=== PATIENT | male | born 1985 | race Hispanic/Latino ===

== ENCOUNTER 2024-06-18 08:31 | Emergency (ER) | payer BC ==
[~2024-06-18] VITALS: Ht 172.7 cm; Wt 102.1 kg
--- NOTE | 2024-06-18 09:21 | EKG ---
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
[2024-06-18 09:49] LABS: POTASSIUM 3.8 mmol/L (3.5-5.1)
[2024-06-18 09:51] LABS: INR 0.98 (0.85-1.15); PROTHROMBIN TIME 10.4 SEC (9.6-11.6)
[2024-06-18 09:52] LABS: PARTIAL THROMBOPLASTIN TIME 27.5 SEC (26.3-35.5)
[2024-06-18 09:54] LABS: MAGNESIUM 2.3 mg/dL (1.80-2.40)
[2024-06-18 09:55] LABS: BASOPHILS # (AUTO) 0.07 K/uL (0.00-0.20); BASOPHILS % (AUTO) 1.3 % (0.0-5.0); EOSINOPHILS # (AUTO) 0.03 K/uL (0.00-0.70); EOSINOPHILS % (AUTO) 0.6 % (0.0-8.0); HEMATOCRIT 51.4 % (42-54); IMMATURE GRANULOCYTE ABSOLUTE 0.02 K/uL (0-1); LYMPHOCYTES % (AUTO) 36.2 % (21.0-51.0); MEAN CORPUSCULAR HEMOGLOBIN 27.8 pg (27.0-33.0); MEAN CORPUSCULAR HGB CONC 33.1 g/dL (32.0-36.0); MEAN CORPUSCULAR VOLUME 84.1 fL (79-99); MONOCYTES # (AUTO) 0.3 K/uL (0.1-1.0); MONOCYTES % (AUTO) 5.7 % (3.0-13.0); NEUTROPHILS % (AUTO) 55.8 % (40.0-77.0); PLATELET COUNT (AUTO) 230 K/uL (130-400); RED BLOOD CELL COUNT(AUTO) 6.11 MIL/uL (4.50-6.20); RED CELL DISTRIBUTION WIDTH 14.1 % (11.0-15.5); WHITE BLOOD COUNT (AUTO) 5.4 K/uL (4.8-10.8)
[2024-06-18 10:06] LABS: B-TYPE NATRIURETIC PEPTIDE < 5 pg/mL (0-100)
--- NOTE | 2024-06-18 10:06 | ERN ---
General Chief Complaint: Numbness Stated Complaint: LEFT SIDED NUMBNESS X 2 DAYS Time Seen by MD: 08:45 Source: patient History of Present Illness Initial Comments Patient is a 39-year-old male coming in with chest numbness and chest pressure. Patient states that this began two days ago. Along with that today he started presenting with left arm numbness left facial numbness. States that he was concerned decided to come in for further evaluation. No fever or chills. Allergies: Coded Allergies: No Known Drug Allergies (Unverified Allergy, Unknown, 06/18/24) Past Medical History Past Medical History: No Pertinent History Past Surgical History: None ROS Dictation CONSTITUTIONAL: No chills, no fever, no weakness, no diaphoresis, no malaise. HEAD/FACE: No signs of trauma. EENT: No eye pain, no blurred vision, no tearing, no double vision, no ear pain, no ear discharge, no nose pain, no nasal congestion, no throat pain, no throat swelling, no mouth pain. RESPIRATORY: No cough, no orthopnea, no SOB, no stridor, no wheezing. CARDIOVASCULAR: No chest pain, no edema, no palpitations, no syncope. GASTROINTESTINAL/ABDOMINAL: No abdominal pain, no constipation, no diarrhea, no nausea, no vomiting. GENITOURINARY: No abnormal discharge, no dysuria, no frequent urination, no hematuria. No complaints of pain in the genitals. MUSCULOSKELETAL: No back pain, no gout, no joint pain, no joint swelling, no muscle pain, no muscle stiffness, no neck pain. INTEGUMENTARY: No change in color, no change in hair/nails, no dryness, no le salma, no lumps, no rash. NEUROLOGICAL/PSYCH: No anxiety, not depressed, no emotional problem, no headache, no numbness, no pre-existing deficit, no history of seizures, no tremors, no weakness. HEMATOLOGIC/LYMPHATIC: Not anemic, no history of blood clots, no apparent bleeding, no bruising, glands not swollen. All Systems Negative, Except as Noted. Physical Exam Physical Exam Dictation VITAL SIGNS: Reviewed. GENERAL APPEARANCE: Alert, oriented x3, no acute distress, obese. HEAD AND FACE: Non-traumatic. EYES: PERRL, pink conjunctivas, eyelid no trauma, anterior chamber clear. EARS: Pinnas intact and no signs of trauma or erythema. Ear canals clear and no discharge. TMs no erythema. NOSE: No discharge, no bleeding. OROPHARYNX: Mouth normal, teeth no caries, tongue pink. Pharynx clear, no erythema. Tonsils no exudates, no abscesses noted. Mucous membrane moist. NECK: Supple, non-tender, no thyromegaly, no masses, no JVD, no bruits. BREAST: Deferred. CHEST: No tenderness, no crepitus, no paradoxical movement, no retractions. LUNGS: Clear, well-ventilated, symmetric, no rales, no wheezing, no rhonchi, no stridor, good breath sounds bilaterally. HEART: Regular rate, regular rhythm, no murmur, no gallops. VASCULAR: No peripheral edema. ABDOMEN: Soft, positive bowel sounds, nondistended, no guarding, nontender, no rebound, no masses no hepatomegaly, no splenomegaly, no Kathleen's sign, no hernias. RECTAL: Deferred. GENITAL: Deferred. NEUROLOGICAL: Normal speech, gross motor function intact, gross sensory function intact. MUSCULOSKELETAL: Neck nontender, full range of motion, back nontender, full range of motion. EXTREMITIES: Nontender, full range of motion. SKIN: Color pink, dry, no turgor, no rash, no lacerations, no abrasions, no contusions. LYMPHATICS: Deferred. Stroke Patient?: No NIH STROKE SCALE: NIH STROKE SCALE Response (Comments) Value Level of Consciousness Alert 0 Ask patient month and their age Answers both correct 0 Command to open eyes, make fist and let go Obeys both correct 0 Best gaze (horizontal eye movement) Normal 0 Visual Field Testing No Visual Field Loss 0 Facial Paresis Normal / Symmetrical 0 Motor Function - Left Arm Normal 0 Motor Function - Right Arm Normal 0 Motor Function - Left Leg Normal 0 Motor Function - Right Leg Normal 0 Limb Ataxia No Ataxia 0 Sensory-pin prick to arms, legs, trunk and face Normal 0 Best Language (describe picture, name items and read) No Aphasia 0 Dysarthria (read several words) Normal Articulation 0 Extinction and Inattention Normal 0 Total 0 Neuro Comment: 0 Results Laboratory and Microbiology Lab and Micro Result Laboratory Tests Test 06/18/24 09:33 06/18/24 10:12 White Blood Count 5.4 K/uL (4.8-10.8) Red Blood Count 6.11 MIL/uL (4.50-6.20) Hemoglobin 17.0 g/dL (14.0-18.0) Hematocrit 51.4 % (42-54) Mean Corpuscular Volume 84.1 fL (79-99) Mean Corpuscular Hemoglobin 27.8 pg (27.0-33.0) Mean Corpuscular Hemoglobin Concent 33.1 g/dL (32.0-36.0) Red Cell Distribution Width 14.1 % (11.0-15.5) Platelet Count 230 K/uL (130-400) Mean Platelet Volume 11.1 fL (7.5-10.5) H Immature Granulocyte % (Auto) 0.4 % (0-1) Neutrophils (%) (Auto) 55.8 % (40.0-77.0) Lymphocytes (%) (Auto) 36.2 % (21.0-51.0) Monocytes (%) (Auto) 5.7 % (3.0-13.0) Eosinophils (%) (Auto) 0.6 % (0.0-8.0) Basophils (%) (Auto) 1.3 % (0.0-5.0) Neutrophils # (Auto) 3.0 K/uL (1.8-7.7) Lymphocytes # (Auto) 2.0 K/uL (1.0-4.8) Monocytes # (Auto) 0.3 K/uL (0.1-1.0) Eosinophils # (Auto) 0.03 K/uL (0.00-0.70) Basophils # (Auto) 0.07 K/uL (0.00-0.20) Absolute Immature Granulocyte (auto 0.02 K/uL (0-1) Nucleated Red Blood Cells 0.0 % (0.0-0.19) Prothrombin Time 10.4 SEC (9.6-11.6) Prothromb Time International Ratio 0.98 (0.85-1.15) Activated Partial Thromboplast Time 27.5 SEC (26.3-35.5) Sodium Level 139 mmol/L (136-145) Potassium Level 3.8 mmol/L (3.5-5.1) Chloride Level 103 mmol/L (101-111) Carbon Dioxide Level 30 mmol/L (21-32) Blood Urea Nitrogen 11 mg/dL (7-18) Creatinine 1.0 mg/dL (0.5-1.3) Glomerular Filtration Rate Calc 98 mL/min (>90) Random Glucose 109 mg/dL (70-105) H Total Calcium 8.4 mg/dL (8.5-10.1) L Magnesium Level 2.30 mg/dL (1.80-2.40) Total Creatine Kinase 285 U/L (21-232) H Troponin I High Sensitivity 5 ng/L (4-75) B-Type Natriuretic Peptide < 5 pg/mL (0-100) Urine Color LIGHT-YELLOW (YELLOW) Urine Appearance CLOUDY (CLEAR) H Urine pH 8.0 (5.0-8.0) Urine Specific [place] 1.014 (1.001-1.031) Urine Protein NEGATIVE mg/dL (NEGATIVE) Urine Glucose (UA) NEGATIVE mg/dL (NEGATIVE) Urine Ketones NEGATIVE mg/dL (NEGATIVE) Urine Occult Blood NEGATIVE (NEGATIVE) Urine Nitrate NEGATIVE (NEGATIVE) Urine Bilirubin NEGATIVE mg/dL (NEGATIVE) Urine Urobilinogen 0.2 mg/dL (0.2-1.0) Urine Leukocyte Esterase NEGATIVE [place]/uL Urine RBC 2-5 /HPF (0-1) H Urine WBC None /HPF (0-1) Urine Squamous Epithelial Cells RARE /HPF (0-2) Urine Amorphous Crystals (Auto) RARE /LPF (None Seen) Urine Bacteria None /HPF (None Seen) Urine Opiates Screen NEGATIVE (NEGATIVE) Urine Barbiturates Screen NEGATIVE (NEGATIVE) Urine Phencyclidine Screen NEGATIVE (NEGATIVE) Urine Amphetamines Screen NEGATIVE (NEGATIVE) Urine Benzodiazepines Screen NEGATIVE (NEGATIVE) Urine Cocaine Screen NEGATIVE (NEGATIVE) Urine Marijuana (THC) Screen NEGATIVE (NEGATIVE) Labs Reviewed?: Yes EKG/XRAY/US/CT/MRI EKG Comment 06/18/2024 time 9:19 a.m. Ventricular rate 72 Sinus rhythm [place] [address] wave elevation or depression X-RAY Comment [place] [id number] [address] IMAGING REPORT Signed PATIENT: SANTI DAN MR#: [id number] : 1985 SEX: M AGE: 39 LOCATION: [facility] ORDER [id number] STATUS: REG ER REPORT#: [id number] SERVICE [id number] REASON: cp ORDERING PHYSICIAN: YOLANDA FLORENTINO MD PROCEDURE: CXR1VW - CHEST 1VW CHEST 1VW HISTORY: Chest pain COMPARISON: None FINDINGS: A frontal projection of the chest was obtained. No acute pulmonary infiltrates is seen. The heart is borderline enlarged. Mild bilateral pulmonary infiltrates are seen. Degenerative changes are seen. IMPRESSION: 1. Mild bilateral pulmonary infiltrates. DICTATED BY: SANGITA DONAHUE MD DATE: 06/18/24 1011 ELECTRONICALLY SIGNED BY: SANGITA DONAHUE MD DATE: 06/18/24 1015 [facility] MDM: Differential diagnosis: Bilateral pulmonary infiltrates, allergic reaction, GERD, NSTEMI, ACS, Rationale: Tests considered and ordered secondary to shared decision making include: Previous outside records reviewed: Old ER visits. Risk of complication and/or morbidity or mortality of patient management: None Patient is a 39-year-old male coming in to be evaluated for left upper chest tingling. Per patient this has been ongoing for two days. He was concerned because initially he was to have more numbness on physical exam patient does feel sensation when it when I touch in that area chest x-ray disclose mild bilateral lung infiltrates suggestive possible bronchitis. Medication for symptomatic relief will be provided due to the presentation being tingling possibility of an allergic reaction high and based on his previous history of gastritis and discomfort being in that areas medication will be provided as well so that. Due to the fact that chest x-ray shows mild infiltrates antibiotics will also be provided. I did advised him appropriate follow up with PCP in 1-2 days for ongoing management. ED Course Orders Procedure Category Date Status Time Cbc With Differential LAB 06/18/24 Complete 08:48 Prothrombin Time With LAB 06/18/24 Complete INR 08:48 B-Type Natriuretic LAB 06/18/24 Complete Peptide 08:48 Chest 1vw RAD 06/18/24 Resulted 08:48 12 Lead Ekg Tracing- EKG 06/18/24 Complete Technical 08:48 Lactated Ringers PHA 06/18/24 Complete 1000ml (Lactated 09:00 Magnesium LAB 06/18/24 Complete 08:48 Creatine Kinase, Total LAB 06/18/24 Complete 08:48 Troponin I High LAB 06/18/24 Complete Sensitivity 08:48 Urinalysis Profile LAB 06/18/24 Complete 08:48 Partial LAB 06/18/24 Complete Thromboplastin Time 08:48 Basic Metabolic Panel LAB 06/18/24 Complete 08:48 Drug Screen Urine LAB 06/18/24 Complete 08:48 Pantoprazole 40mg Inj PHA 06/18/24 Complete (Protonix 40mg Inj 11:30 Lidocaine Hcl 2% PHA 06/18/24 Complete Viscous (Lidocaine Hcl 11:30 Mag/Alum/Simeth 30ml PHA 06/18/24 Complete (Maalox Plus 30ml) 11:30 Mag/Alum/Simeth 30ml PHA 06/18/24 Complete (Maalox Plus 30ml) 11:26 Lidocaine Hcl 2% PHA 06/18/24 Complete Viscous (Lidocaine Hcl 11:26 Current Medications Medications (Trade) Dose Ordered Sig/Mark Route PRN Reason Start Time Stop Time Status Last Admin Dose Admin Al Hydroxide/Mg Hydroxide (MAALox PLUS 30ML) 30 ml ONCE ONCE PO 06/18/24 11:30 06/18/24 11:31 DC 06/18/24 11:28 Al Hydroxide/Mg Hydroxide (MAALox PLUS 30ML) 30 ml STK-MED ONCE .ROUTE 06/18/24 11:26 06/18/24 11:26 DC Lactated Ringer's 1,000 ml @ 0 mls/hr ONCE ONCE IV 06/18/24 09:00 06/18/24 09:40 DC 06/18/24 10:08 Lidocaine HCl (Lidocaine HCl 2% Viscous) 10 ml ONCE ONCE PO 06/18/24 11:30 06/18/24 11:31 DC 06/18/24 11:28 Lidocaine HCl (Lidocaine HCl 2% Viscous) 15 ml STK-MED ONCE .ROUTE 06/18/24 11:26 06/18/24 11:26 DC Pantoprazole Sodium (PROTonix 40MG INJ) 40 mg ONCE ONCE IVP 06/18/24 11:30 06/18/24 11:31 DC 06/18/24 11:28 Vital Signs Date Time Temp Pulse Resp B/P (MAP) Pulse Ox O2 Delivery O2 Flow Rate FiO2 06/18/24 11:00 69 16 117/74 98 Room Air* 0 21 06/18/24 09:25 97.5 93 16 120/81 93 Room Air* 0 21 06/18/24 08:33 80 18 127/80 98 0 DX & DISP Disposition: Discharge Departure Impression: Primary Impression: Bilateral pulmonary infiltrates on chest x-ray Additional Impressions: Contact dermatitis, GERD (gastroesophageal reflux disease) Condition: Stable Scripts Hydrocortisone (Cortizone 10) 1 % Gel..gram. 28 GM TP BID for 7 Days, #1 TUBE Prov: YOLANDA FLORENTINO MD 06/18/24 Azithromycin (Zithromax Tri-Hong) 500 Mg Tablet 1 TAB PO DAILY for 3 Days, #3 TAB 0 Refills Prov: YOLANDA FLORENTINO MD 06/18/24 Pantoprazole Sodium (Protonix) 40 Mg Ectab 1 TAB PO DAILY for 30 Days, #30 TAB 0 Refills Prov: YOLANDA FLORENTINO MD 06/18/24 Additional Instructions: FOLLOW-UP WITH PRIMARY CARE PROVIDER IN 1 TO 2 DAYS. TAKE MEDICATIONS DIRECTED HERE IN THE EMERGENCY ROOM. OKAY TO CONTINUE HOME MEDICATIONS UNLESS OTHERWISE DISCUSSED DURING YOUR VISIT IN THE EMERGENCY ROOM TODAY. RETURN TO YOUR NEAREST EMERGENCY ROOM IF SYMPTOMS WORSEN OR IF THERE IS NO IMPROVEMENT. CALL 911 IF YOU NEED IMMEDIATE ASSISTANCE. TAKE TYLENOL [id number] NEEDED AND IF NO CONTRAINDICATIONS ARE PRESENT. INCREASE ORAL HYDRATION. A WOUND CULTURE OR URINE CULTURE WAS ORDERED HERE IN THE EMERGENCY ROOM DEPARTMENT PLEASE FOLLOW-UP WITH PRIMARY CARE PROVIDER AND ADVISE THEM TO GET REPEAT PORTS FROM OUR FACILITY. IF YOU HAD ANY AYDE WRAP/SPLINTS THAT WERE APPLIED HERE, PLEASE DO NOT REMOVE THEM UNTIL YOU SEE YOUR PRIMARY CARE OR SPECIALTY. Referrals: Referrals: REAGAN MENON MD (PCP) Time of Disposition: 12:27 YOLANDA FLORENTINO MD Jun 18, 2024 10:06
[2024-06-18] MEDS: LACTATED RINGERS 1000ML 1,000 ML IV ONE (10:08)
--- NOTE | 2024-06-18 10:15 | HMCIMG ---
CHEST 1VW HISTORY: Chest pain COMPARISON: None FINDINGS: A frontal projection of the chest was obtained. No acute pulmonary infiltrates is seen. The heart is borderline enlarged. Mild bilateral pulmonary infiltrates are seen. Degenerative changes are seen. IMPRESSION: 1. Mild bilateral pulmonary infiltrates.
[2024-06-18 10:43] LABS: AMPHET/METH SCREEN,URINE NEGATIVE (NEGATIVE); BARBITURATE SCREEN, URINE NEGATIVE (NEGATIVE); BENZODIAZEPINES SCREEN,URINE NEGATIVE (NEGATIVE); CANNABINOID SCREEN,URINE NEGATIVE (NEGATIVE); COCAINE SCREEN,URINE NEGATIVE (NEGATIVE); OPIATE SCREEN,URINE NEGATIVE (NEGATIVE); PHENCYCLIDINE SCREEN,URINE NEGATIVE (NEGATIVE)
[2024-06-18 10:45] LABS: APPEARANCE,URINE CLOUDY (CLEAR); BILIRUBIN,URINE NEGATIVE (NEGATIVE); COLOR,URINE LIGHT-YELLOW (YELLOW); GLUCOSE, URINE (UA) NEGATIVE (NEGATIVE); KETONES,URINE NEGATIVE (NEGATIVE); LEUKOCYTE ESTERASE ,URINE NEGATIVE Leu/uL (NEGATIVE); NITRATE,URINE NEGATIVE (NEGATIVE); OCCULT BLOOD,URINE NEGATIVE (NEGATIVE); PROTEIN,URINE NEGATIVE (NEGATIVE); UROBILINOGEN,URINE 0.2 mg/dL (0.2-1.0)
[2024-06-18 10:51] LABS: ADD UA MICROSCOPIC YES
[2024-06-18 11:17] LABS: SQUAMOUS EPITHELIAL CELL,UR RARE /HPF (0-2)
[2024-06-18] MEDS: LIDOCAINE HCL 2% VISCOUS 15 ML UDCUP ONE (11:27)
[2024-06-18] MEDS: MAG/ALUM/SIMETH 30 ML UDCUP ONE (11:27)
[2024-06-18] MEDS: LIDOCAINE HCL 2% VISCOUS 15 ML UDCUP PO ONE (11:28)
[2024-06-18] MEDS: PANTOPrazole 40 MG/VIAL IVP ONE (11:28)
[2024-06-18] MEDS: MAG/ALUM/SIMETH 30 ML UDCUP PO ONE (11:28)
[2024-06-18] MEDS ORDERED: AZIT500T2 PO (12:28)
[2024-06-18] MEDS ORDERED: PANT40TA55 PO (12:28)
[2024-06-18] MEDS ORDERED: HYDR28GE5 TP (12:28)
[2024-06-18 13:00] VITALS: BP 116/76; PULSE 73; RESP 16; TEMP 98; O2SAT 96
== END 2024-06-18 13:29 | disposition home or self-care (01) ==
LOC: EDH 08:31
DX: R91.8 Other nonspecific abnormal finding of lung field (principal); L25.9 Unspecified contact dermatitis, unspecified cause; K21.9 Gastro-esophageal reflux disease without esophagitis
CPT/HCPCS: 99284; 96374; 71045; 96361; 82550; 83735; 84484; 80048; 83880; 80305; 85025; 85610; 85730; 36415; 93005; J7120; J2470